=== PATIENT | female | born 1985 | race Caucasian/White ===

== ENCOUNTER 2016-11-12 06:29 | Inpatient (IN) | payer MEDICAID ==
[~2016-11-12] VITALS: Ht 133.3 cm; Wt 56.0 kg
[~2016-11-12 06:29] MED LIST: CA C1TAB60 PO; IBUP800T25 PO; ISON100T25 PO; PERCOCET PO; PREN1TAB31 PO; [UNRECOGNIZED DRUG - CODE] PO
[2016-11-12 06:51] VITALS: Ht 133.3 cm; Wt 56.0 kg
[2016-11-12] MEDS ORDERED: FERR325C PO (06:51)
[2016-11-12 06:52] VITALS: BP 107/73; PULSE 85; RESP 18
[2016-11-12] MEDS ORDERED: LACTATED RINGER'S 1,000 ML IV SCH (07:20)
[2016-11-12] MEDS ORDERED: OXYTOCIN 30 UNITS/LR 500 ML IV SCH (07:30)
[2016-11-12] MEDS ORDERED: METHYLERGONOVINE 0.2 MG INJ IM PRN ×2 (07:30→17:00)
[2016-11-12] MEDS ORDERED: CEFAZOLIN 2 GM/50 ML (PMX) 50 ML IV SCH (07:30)
[2016-11-12] MEDS ORDERED: LACTATED RINGER'S 1,000 ML IV ONE (07:30)
[2016-11-12] MEDS ORDERED: OXYTOCIN 30 UNITS/LR 500 ML IV PRN ×2 (07:30→17:00)
[2016-11-12] MEDS ORDERED: MISOPROSTOL 200 MCG TAB PR PRN ×2 (07:30→17:00)
[2016-11-12] MEDS ORDERED: CARBOPROST 250 MCG INJ IM PRN ×2 (07:30→17:00)
[2016-11-12 08:16] LABS: ADD SCAN DIFF NO
[2016-11-12 08:27] LABS: ABNORMAL IP MESSAGE 1; BASOPHILS % 0.5 % (0.0-2.0); EOSINOPHILS # 0.3 10^3/ul (0.0-0.5); EOSINOPHILS % 4.4 % (0.0-7.0); HEMATOCRIT 32.2 % (37.0-47.0); HEMOGLOBIN 9.9 g/dl (12.0-16.0); LYMPHOCYTES # 2.2 10^3/ul (0.8-2.9); LYMPHOCYTES % 34.6 % (15.0-51.0); MEAN CORPUSCULAR HEMOGLOBIN 24.3 pg (29.0-33.0); MEAN CORPUSCULAR HGB CONC 30.7 g/dl (32.0-37.0); MEAN CORPUSCULAR VOLUME 78.9 fl (82.0-101.0); MONOCYTE # 0.5 10^3/ul (0.3-0.9); MONOCYTES % 7.7 % (0.0-11.0); NEUTROPHIL # 3.4 10^3/ul (1.6-7.5); NEUTROPHILS % 52.3 % (39.0-77.0); PLATELET COUNT 120 10^3/UL (140-415); RED BLOOD COUNT 4.08 10^6/ul (4.20-5.40); RED CELL DISTRIBUTION WIDTH 15.4 % (11.5-14.5); WHITE BLOOD COUNT 6.4 10^3/ul (4.8-10.8)
[2016-11-12] MEDS ORDERED: TERBUTALINE 1 MG/ML INJ SC ONE (08:30)
[2016-11-12 08:53] LABS: INR 0.95; PROTIME 12.7 Sec (12.2-14.2)
[2016-11-12 08:54] LABS: PARTIAL THROMBOPLASTIN TIME 29.4 Sec (25.0-35.0)
--- NOTE | 2016-11-12 09:17 | TRIAGE ---
OB Triage Datetime Report Generated by CPN: 11/12/2016 09:17 Datetime: 11/12/2016 09:01 Labor Evaluation Frequency: 5-15 Monitor Mode: External Duration (sec)2399: 60-80 Quality: Moderate Pattern: Normal: <= 5 Contractions in 10 Minutes Resting Tone Lynden: Relaxed Heart Rate FHR Baseline Rate: 130 Monitor Mode: External US FHR Baseline Changes: No Baseline Change Variability: Moderate 6-25 bpm Accelerations: 15X15 Decelerations: None Category: Category I Pain Assessment Pain Scale: 8 Pain Presence: Intermittent Pain Type: Contraction Pain Location: Abdomen Pain Relief Measures: Comfort Measures Datetime: 11/12/2016 08:00 Maternal Assessment Level of Consciousness: Fully Conscious DTR's/Clonus: DTRs 2+; No Clonus Headache: Denies Blurred Vision: No Respiratory Effort: Unlabored; Regular Rhythm Breath Sounds, Left: Clear and Equal Breath Sounds, Right: Clear and Equal Nausea/Vomiting: Denies RUQ Epigastric Pain: Denies Facial Edema: None Labor Evaluation Frequency: 4-10 Monitor Mode: External Duration (sec)2399: 60-90 Quality: Moderate Pattern: Normal: <= 5 Contractions in 10 Minutes Resting Tone Lynden: Relaxed Heart Rate FHR Baseline Rate: 135 Monitor Mode: External US FHR Baseline Changes: No Baseline Change Variability: Moderate 6-25 bpm Accelerations: 15X15 Decelerations: None Category: Category I Pain Assessment Pain Scale: 8 Pain Presence: Intermittent Pain Type: Contraction Pain Location: Abdomen; Back Pain Relief Measures: Comfort Measures Datetime: 11/12/2016 07:14 Stage of : OB Triage Datetime: 11/12/2016 07:11 Vaginal Exam Dilatation (cms): 0.0 Effacement (%): 0 Station: -4 Exam By: ASHLYN Barillas Vaginal Bleeding: None Cervix, Consistency: Firm Cervix, Position: Posterior Datetime: 11/12/2016 07:09 Membrane Status: Ruptured Membranes Rupture Method: Spontaneous Amniotic Fluid Amount: Small Amniotic Fluid Odor: Normal Pool: Positive Nitrazine: Positive Datetime: 11/12/2016 06:46 Stage of : OB Triage Assessment Type: Triage Maternal Assessment Level of Consciousness: Fully Conscious DTR's/Clonus: DTRs 2+; No Clonus Headache: Denies Blurred Vision: No Respiratory Effort: Unlabored; Regular Rhythm; Equal Expansion Breath Sounds, Left: Clear and Equal Breath Sounds, Right: Clear and Equal Nausea/Vomiting: Denies RUQ Epigastric Pain: Denies Lower Extremities Edema: None Degree: None Upper Extremities Edema: None Degree: None Facial Edema: None Temperature Route: Oral Fall Risk Assessment History of Falling: (0) No Secondary Diagnosis: (0) No Ambulatory Aid: (0) Bedrest/Nurse Assist IV Therapy: (0) No Gait: (0) Normal/Bedrest/Immobile Mental Status: (0) Oriented to Own Ability Fall Score: 0 Fall Risk Score Definition: No Risk: No action required Pain Assessment Pain Scale: 8 Pain Presence: Intermittent Pain Type: Cramping Pain Location: Abdomen Pain Relief Measures: Comfort Measures Datetime: 11/12/2016 06:43 EGA: 36.4 Time Provider Notified: 11/12/2016 07:14 Provider Notified: IMELDA Datetime: 11/12/2016 06:35 Time of Arrival: 11/12/2016 06:24 Arrived By: Wheelchair Arrived From: Home Chief Complaint: UCs q5mins, SROM @0430 Movement: Present Contractions: Regular Time Contractions Began: 11/12/2016 05:00 Contractions: q5mins Rupture of Membranes: Ruptured Vaginal Bleeding: None Vaginal Discharge: Present Abdominal Trauma: Not Applicable Patient Complaints: Contractions; Cramping Time Provider Notified: 11/12/2016 07:14 Provider Notified: IMELDA Initial Plan: PEGGY x2, VE
[2016-11-12] MEDS ORDERED: AMPICILLIN 2 GM/NS (PMX) 100 ML IV ONE (10:30)
--- NOTE | 2016-11-12 12:44 | RADRPT ---
PROCEDURE: US OB. CLINICAL INDICATION: Size and dates , labor TECHNIQUE: Multiple sonographic images of the pelvis and gravid uterus were obtained. The images were reviewed on a PACS workstation. COMPARISON: No prior studies are available for comparison. FINDINGS: There is a single viable intrauterine gestation. Cardiac activity is present with 135 beats per min kevin. There is a transverse left presentation. The placenta is anterior. There is no evidence for an abruption or placenta previa. Measurements were made in order to determine age. The results are as follows: BPD =8.7 cm HC =30.9 cm AC =30.7 cm FL =6.7 cm Estimated gestational age of approximately 34 weeks and 4 days based on ultrasound measurements. Clinical age: 35 weeks and 5 days. The estimated date of delivery is 12/20/16, based on ultrasound measurements. The EFW = 2460 g, 20%, based on LMP age. RPTAT: AA IMPRESSION: Single viable intrauterine gestation of approximately 34 weeks and 4 days based on ultrasound measu rements. Smaller than clinical age by 1 week. .Tim Espinoza MD, MD Date Time Electronically viewed and signed by .Tim Espinoza MD, on 11/12/2016 12:43 .S/
[2016-11-12] MEDS ORDERED: KETOROLAC 30 MG INJ ONE (12:46)
[2016-11-12] MEDS ORDERED: METOCLOPRAMIDE 10 MG INJ ONE (12:46)
[2016-11-12] MEDS ORDERED: morphine SULFATE/PF (10 MG/10 ML) INJ ONE (12:46)
[2016-11-12] MEDS ORDERED: AMPICILLIN 1 GM/NS (PMX) 50 ML IV SCH (14:30)
[2016-11-12] MEDS ORDERED: ONDANSETRON 4 MG INJ IV PRN ×2 (14:30)
[2016-11-12] MEDS ORDERED: HYDROmorphONE (0.2 MG/ML) 10ML SYG IV PRN ×3 (14:30)
[2016-11-12] MEDS ORDERED: DIPHENHYDRAMINE 50 MG INJ IV PRN (14:30)
[2016-11-12] MEDS ORDERED: NALOXONE (0.4 MG/ML) INJ IV PRN (14:30)
[2016-11-12] MEDS ORDERED: HYDROmorphONE 1 MG/ML SYG IV PRN ×3 (14:30)
[2016-11-12] MEDS ORDERED: METOCLOPRAMIDE 10 MG INJ IV PRN (14:30)
--- NOTE | 2016-11-12 15:15 | HP ---
Date/Time of Note Date/Time of Note DATE: 11/12/16 TIME: 14:28 OB - History Hx of Present Free Text/Dictation 30 y/o female at 35.5 weeks here for C/P SROm at 04:30 AM Chief Complaint: SROM and uterine contractions Last Menstrual Period: Apr 04, 2016 Estimated Due Date: December 12, 2016 : 3 Para: 2 Spontaneous : 0 Therapeutic : 0 Care: Good Care Ultrasounds: Normal mid trimester US Obstetrical Complications: None Medical Complications: None Past Family/Social History * Past Medical, Surgical, Family and Obstetric Histories reviewed from chart. Blood Type: O+ Rubella: immune RPR/VDRL: Negative GBS Status: Unknown HBsAG: Negative OB Admission Exam Vital Signs Vital Signs Vital Signs Date Time Temp Pulse Resp B/P Pulse Ox O2 Delivery O2 Flow Rate FiO2 11/12/16 06:52 97.7 85 18 107/73 Room Air Physical Exam HEENT: WNL Heart: Rhythm Normal Lungs: Clear, Equal Abdomen: WNL Extremities: Normal Reflexes: Normal Cervical Dilatation: 1cm Effacement: 0% Station: -3 Membranes: Ruptured Amniotic Fluid: Clear Heart Rate: 140's Accelerations: Accelerations Present Decelerations: No Decelerations Varibility: Marked Contractions on Admission: 6-10 Minutes Apart Date/Time Contractions Began: 11/12/2016 04:30AM Frequency of Contractions: q5 min Duration: > 45 seconds Intensity: Moderate Last 72 hours Lab Results CBC & BMP 11/12/16 07:45 OB Assessment/Plan Other Assessment: PSROM previous C/S X 2 Desires sterilization Other plan: repeat C/S + BTL GONZALO MONTELONGO MD Nov 12, 2016 15:07
--- NOTE | 2016-11-12 15:20 | OPR ---
Operative Report Planned Procedure Procedure date Nov 12, 2016 Procedure(s) repeat C/S + BTL Performed by: GONZALO MONTELONGO MD Assisting provider: SOPHIE GARRISON MD Anesthesiologist: PHAN PRICE MD Pre-procedure diagnosis 35'5 weeks gestation previous C/S X 2 labor and PSROM Desires sterilization Anesthesia Type: spinal Procedure Description Under satisfactory anaesthesia a Pfannenstiel incision was made two fingerbreadth above and parallel to the symphysis of pubis around the previous scar and previous scar was removed Incision was extended laterally to the border of the Recti muscles on either sides. Incision was carried down with sharp and blunt dissection until fascia was reached. Anterior Recti muscle fascia was incised in mid portion and incision extended laterally to the border of skin incision. Fascia was mobilized from muscle superiorly and Recti muscles were from midline using sharp and blunt dissection. Peritoneum was visualized; Avoiding bowel and bladder it was incised . Incision was extended superiorly and inferiorly. Bladder blade was placed. Posterior peritoneum covering the lower segment of the uterus and lower segment of the uterus were incised.Low transverse uterine incision was made on lower segment of the uterus. Incision extended laterally to the border of Round Lig. on either sides and baby was delivered from OT. position . Amniotic fluid appeared clear. Cord blood was obtained and cord had 3 vessels . Placenta was delivered spontaneously and appeared intact and complete. Intrauterine cavity was rubbed with a laparotomy sponge. Uterine incision was closed in 2 layers using running stitches of No1 Monocryl. Hemostasis appeared secure. Ovaries and Fallopian tubes were within normal limits. Bilateral Tubal Ligation was performed by following procedure: R fallopian tube was raised in mid portion; a Olivia clamp was placed below the fimbriae extending to proximal portion of the fallopian tube. Another clamp was placed parallel to the first and after incising the fallopian tube the stump was sutured using 0 Vicryl stitch. Hemostasis was secure . Same procedure was done on fallopian tube on the opposite side. Hemostasis appeared to be secure on ligated sites of either fallopian tubes. Announcing needle, lap sponge and instrument count to be correct abdomen was closed in layers as follows: Peritoneum and Recti muscles with running stitches of 20 Vicryl. Fascia with running stitch of No 1 PDS. Subcutaneous tissue with running stitches of 20 Chromic and skin was closed using mirna. Patient tolerated the procedure well and was transferred to [facility] in good condition. Post-Procedure Post-procedure diagnosis S/P C/S + BTL Findings: Live Baby Specimen removed: Yes Specimen description distal segments of R and L fallopian tubes Complications: None Pt Condition post procedure: stable Disposition: PACU Physician Certification I, the undersigned physician, hereby certify that I have discussed the procedure described in this consent form with this patient (or the patient's legal banking representative), including: * The risk and benefits of the procedure; * Any adverse reactions that may reasonably be expected to occur; * Any alternative efficacious methods of treatment which may be medically viable ; * The potential problems that may occur during recuperation; * Potential for blood transfusion and associated risks/benefits; and * Any research or economic interest I may have regarding this treatment. I further certify that the patient/legally responsible person was encouraged to ask question and that all questions were answered. GONZALO MONTELONGO MD Nov 12, 2016 15:20
[2016-11-12] MEDS: LACTATED RINGER'S 1,000 ML IV SCH ×2 (16:31→21:02)
[2016-11-12 17:00] VITALS: BP 102/68; PULSE 81; RESP 18
[2016-11-12] MEDS ORDERED: NA PHOSPHATE/BIPHOS 133 ML ENEMA PR PRN (17:00)
[2016-11-12] MEDS ORDERED: LANOLIN 7 GM TUBE TOP PRN (17:00)
[2016-11-12] MEDS ORDERED: ACETAMINOPHEN/CODEINE #3 TAB PO PRN (17:00)
[2016-11-12 17:30] VITALS: BP 108/63; PULSE 73; RESP 19
[2016-11-12] MEDS: CLINDAMYCIN 300 MG CAP PO SCH (18:00)
[2016-11-12] MEDS: CEFAZOLIN 2 GM/50 ML (PMX) 50 ML IV SCH (18:15)
[2016-11-12 20:00] VITALS: BP 98/64; PULSE 72; RESP 20
[2016-11-12] MEDS: SENNA/DOCUSATE NA (8.6MG/50MG) TAB PO SCH (21:00)
[2016-11-12] MEDS: KETOROLAC 30 MG INJ IV PRN (23:51)
[2016-11-13] MEDS: CEFAZOLIN 2 GM/50 ML (PMX) 50 ML IV SCH ×2 (00:49→09:20)
[2016-11-13 04:23] VITALS: BP 110/62; PULSE 72; RESP 20
[2016-11-13] MEDS: LACTATED RINGER'S 1,000 ML IV SCH ×2 (05:37→16:31)
[2016-11-13] MEDS: CLINDAMYCIN 300 MG CAP PO SCH ×4 (06:00→17:56)
--- NOTE | 2016-11-13 07:16 | PN ---
Date/Time of Note Date/Time of Note DATE: 11/13/16 TIME: 07:14 Assessment/Plan VTE Prophylaxis VTE Prophylaxis Intervention: ambulation Lines/Catheters IV Catheter Type (from Nrsg): Peripheral IV Subjective 24 Hr Interval Summary Free Text/Dictation Anesthesia Note: A 29 titi fermale s/p C-S with Duramorph for post op pain POD # 1 is doping well. pain is controlled, no itching, headache, back pain, N/V. back is clean. care per surgery team Exam/Review of Systems Vital Signs Vitals Vital Signs Date Time Temp Pulse Resp B/P Pulse Ox O2 Delivery O2 Flow Rate FiO2 11/13/16 04:23 98.1 72 20 110/62 Room Air Intake and Output 11/12/16 11/12/16 11/13/16 15:00 23:00 07:00 Intake Total 600 ml 625 ml 1000 ml Output Total 1400 ml 350 ml Balance 600 ml -775 ml 650 ml Results Result Diagram: 11/12/16 0745 Results 24 hrs Laboratory Tests Test 11/12/16 07:45 White Blood Count 6.4 Red Blood Count 4.08 L Hemoglobin 9.9 L Hematocrit 32.2 L Mean Corpuscular Volume 78.9 L Mean Corpuscular Hemoglobin 24.3 L Mean Corpuscular Hemoglobin Concent 30.7 L Red Cell Distribution Width 15.4 H Platelet Count 120 L Mean Platelet Volume Neutrophils % 52.3 Lymphocytes % 34.6 Monocytes % 7.7 Eosinophils % 4.4 Basophils % 0.5 Nucleated Red Blood Cells % 0.0 Neutrophils # 3.4 Lymphocytes # 2.2 Monocytes # 0.5 Eosinophils # 0.3 Basophils # 0.0 Nucleated Red Blood Cells # 0.0 Prothrombin Time 12.7 Prothrombin Time Ratio 1.0 INR International Normalized Ratio 0.95 Activated Partial Thromboplast Time 29.4 Rapid Plasma Reagin NONREACTIVE Hepatitis B Surface Antigen NEGATIVE HIV (1&2) Antibody NEGATIVE Medications Medications Current Medications Naloxone HCl (Narcan) 0.1 mg Q2M PRN IV FOR RESP RATE 8 OR LESS; Start 11/12/16 at 14:30; Stop 11/13/16 at 14:29 Ketorolac Tromethamine (Toradol) 30 mg Q6H PRN IV PAIN Last administered on 11/12t 23:51; Admin Dose 30 MG; Start 11/12/16 at 14:30; Stop 11/13/16 at 14:29 Hydromorphone HCl (Dilaudid) 1 mg Q3H PRN IV BREAKTHROUGH PAIN; Start 11/12/16 at 14:30; Stop 11/13/16 at 14:29 Hydromorphone HCl (Dilaudid) 0.2 mg Q3H PRN IV PAIN LEVEL 1-5; Start 11/12/16 at 14:30; Stop 11/13/16 at 14:29 Hydromorphone HCl (Dilaudid) 0.4 mg Q3H PRN IV PAIN LEVEL 6-10; Start 11/12/16 at 14:30; Stop 11/13/16 at 14:29 Diphenhydramine HCl (Benadryl) 25 mg Q6H PRN IV ITCHING; Start 11/12/16 at 14:30 ; Stop 11/13/16 at 14:29 Ondansetron HCl 4 mg 4 mg Q6H PRN IV NAUSEA AND/OR VOMITING Last administered on 11/12/16 21:23; Admin Dose 4 MG; Start 11/12/16 at 14:30; Stop 11/13/16 at 14: 29 Lactated Ringer's 1,000 ml @ 125 mls/hr Q8H IV Last administered on 11/13/16 05:37; Admin Dose 125 MLS/HR; Start 11/12/16 at 16:31 Cefazolin Sodium/ Dextrose (Ancef 2 Gm/50 ml (Pmx)) 50 ml @ 100 mls/hr Q8H IV Last administered on 11/13/16 00:49; Admin Dose 100 MLS/HR; Start 11/12/16 at 17: 00; Stop 11/13/16 at 09:29 Ibuprofen (Motrin) 800 mg Q8 PO ; Start 11/13/16 at 14:00 Simethicone (Mylicon) 160 mg Q8H PRN PO DISTENSION/GAS/BLOATING; Start 11/12/16 at 17:00 Senna/Docusate Sodium (Senokot-S) 1 tab BID PO ; Start 11/12/16 at 21:00 Sodium Biphosphate/ Sodium Phosphate (Fleet Enema) 133 ml DAILY PRN TN CONSTIPATION; Start 11/12/16 at 17:00 Diphtheria/ Tetanus/Acell Pertussis (Adacel) 0.5 ml ONCE ONCE IM* ; Start at 09:00; Stop 11/15/16 at 09:01 Measles/Mumps/ Rubella Vaccine Live 0.5 ml 0.5 ml ONCE ONCE SC* ; Start at 09:00; Stop 11/15/16 at 09:01 Oxytocin/Lactated Ringer's 500 ml @ 0 mls/hr ONCE PRN IV For Hemorrhage Management Last administered on 11/12/16t 17:14; Admin Dose 125 MLS/HR; Start 11/12/16 at 17:00 Methylergonovine Maleate (Methergine) 0.2 mg ONCE PRN IM VAGINAL BLEEDING; Start 11/12/16 at 17:00 Carboprost Tromethamine (Hemabate) 250 mcg ONCE PRN IM VAGINAL BLEEDING; Start 11/12/16 at 17:00 Misoprostol (Cytotec) 1,000 mcg ONCE PRN TN VAGINAL BLEEDING; Start 11/12/16 at 17:00 Acetaminophen/ Codeine Phosphate (Tylenol No.3) 2 tab Q4H PRN PO PAIN LEVEL 1-5 ; Start 11/12/16 at 17:00 Oxycodone/ Acetaminophen (Percocet (5/ 325)) 2 tab Q4H PRN PO PAIN LEVEL 6-10; Start 11/12/16 at 17:00 Clindamycin HCl (Cleocin) 300 mg Q6 PO ; Start 11/12/16 at 18:00 Bisacodyl (Dulcolax Supp) 10 mg ONCE ONCE TN ; Start 11/13/16 at 09:00; Stop 11/13/16 at 09:01 PHAN PRICE MD Nov 13, 2016 07:16
[2016-11-13 07:36] LABS: ADD SCAN DIFF NO
[2016-11-13 07:38] LABS: ABNORMAL IP MESSAGE 1; BASOPHILS % 0.3 % (0.0-2.0); EOSINOPHILS # 0.3 10^3/ul (0.0-0.5); EOSINOPHILS % 4.1 % (0.0-7.0); HEMATOCRIT 24.6 % (37.0-47.0); HEMOGLOBIN 7.7 g/dl (12.0-16.0); LYMPHOCYTES # 1.9 10^3/ul (0.8-2.9); LYMPHOCYTES % 26.6 % (15.0-51.0); MEAN CORPUSCULAR HGB CONC 31.3 g/dl (32.0-37.0); MEAN CORPUSCULAR VOLUME 79.9 fl (82.0-101.0); MONOCYTE # 0.5 10^3/ul (0.3-0.9); MONOCYTES % 7.2 % (0.0-11.0); NEUTROPHIL # 4.4 10^3/ul (1.6-7.5); NEUTROPHILS % 61.5 % (39.0-77.0); PLATELET COUNT 103 10^3/UL (140-415); RED BLOOD COUNT 3.08 10^6/ul (4.20-5.40); RED CELL DISTRIBUTION WIDTH 15.4 % (11.5-14.5); WHITE BLOOD COUNT 7.1 10^3/ul (4.8-10.8)
[2016-11-13 08:00] VITALS: BP 98/59; PULSE 108; RESP 19
[2016-11-13] MEDS ORDERED: BISACODYL 10 MG SUPP PR ONE (09:00)
[2016-11-13] MEDS: SENNA/DOCUSATE NA (8.6MG/50MG) TAB PO SCH ×2 (09:20→21:25)
[2016-11-13] MEDS: KETOROLAC 30 MG INJ IV PRN (11:45)
[2016-11-13 12:00] VITALS: BP 98/66; PULSE 94; RESP 18
[2016-11-13 13:50] LABS: RUBELLA ANTIBODY - IGG 1.45 index
[2016-11-13] MEDS: IBUPROFEN 800 MG TAB PO SCH ×2 (14:00→21:25)
[2016-11-13 16:00] VITALS: BP 110/76; RESP 18
--- NOTE | 2016-11-13 16:25 | PN ---
Date/Time of Note Date/Time of Note DATE: 11/13/16 TIME: 16:22 Assessment/Plan VTE Prophylaxis VTE Prophylaxis Intervention: ambulation Lines/Catheters IV Catheter Type (from Nrsg): Peripheral IV Assessment/Plan Assessment/Plan POD # 1 S/P C/S will advance diet and ambulate Subjective 24 Hr Interval Summary no BM Passing flatus Constitutional: BM, ambulates, flatus, improved, no complaints, urine output Pain Control: well controlled Exam/Review of Systems Vital Signs Vitals Vital Signs Date Time Temp Pulse Resp B/P Pulse Ox O2 Delivery O2 Flow Rate FiO2 11/13/16 12:00 97.8 94 18 98/66 Room Air Intake and Output 11/12/16 11/12/16 11/13/16 15:00 23:00 07:00 Intake Total 600 ml 625 ml 1000 ml Output Total 1400 ml 350 ml Balance 600 ml -775 ml 650 ml Exam Free Text/Dictation Abdomen: soft BS+ incision : covered Constitutional: alert, oriented, well developed Psych: nl mood/affect, no complaints Head: atraumatic, normocephalic Eyes: EOMI, nl conjunctiva, nl lids, nl sclera ENMT: mucosa pink and moist, nl external ears & nose, nl lips & teeth, nl nasal mucosa & septum Neck: non-tender, supple Respiratory: clear to auscultation, normal air movement Cardiovascular: nl pulses, regular rate and rhythm Gastrointestinal: nl liver, spleen, non-tender, soft Musculoskeletal: nl extremities to inspection, nl gait and stance Extremities: normal pulses Neurological: MERCHANDISING STOCK ASSOCIATE II-XII intact, nl mental status, nl speech, nl strength Skin: nl turgor, rash or lesions Lymph: nl lymph nodes Results Result Diagram: 11/13/16 0648 GONZALO MONTELONGO MD Nov 13, 2016 16:25
[2016-11-13 19:35] VITALS: BP 102/62; PULSE 100; RESP 18
[2016-11-13] MEDS: OXYCODONE/ACETAMINOPHEN (5/325) TAB PO PRN (20:03)
[2016-11-14] MEDS: CLINDAMYCIN 300 MG CAP PO SCH ×4 (00:06→17:28)
[2016-11-14] MEDS: LACTATED RINGER'S 1,000 ML IV SCH ×2 (00:31→08:31)
[2016-11-14 04:25] VITALS: BP 108/72; PULSE 90; RESP 16
[2016-11-14] MEDS: IBUPROFEN 800 MG TAB PO SCH ×3 (05:57→21:04)
[2016-11-14 08:00] VITALS: BP 106/66; PULSE 85; RESP 18
[2016-11-14] MEDS: SENNA/DOCUSATE NA (8.6MG/50MG) TAB PO SCH ×2 (09:15→21:04)
[2016-11-14 16:07] VITALS: BP 107/59; PULSE 78; RESP 18
--- NOTE | 2016-11-14 16:49 | DS ---
Date/Time of Note Date/Time of Note home next day DATE: 11/14/16 TIME: 16:48 Obstetrical Discharge Record Final Diagnosis Final Diagnosis: delivered Other Final Diagnosis S/P repeat C/S at 35 weeks Section Section: Repeat Condition on Discharge Physical Assessment Last Vitals: see nurses notes Voiding: Yes Bowel Movement: Yes Breast: Soft, non-tender, Filling Fundus: Firm Abdomen and Incision: soft BS + Incision: healing well Episiotomy: NA Calf Tenderness: No Patient Condition: Good GONZALO MONTELONGO MD Nov 14, 2016 16:49
--- NOTE | 2016-11-14 16:52 | DS ---
Date/Time of Note Date/Time of Note DATE: 11/14/16 TIME: 16:50 Discharge Summary Admission/Discharge Info Admit Date/Time Nov 12, 2016 at 07:27 Discharge Date/Time 11/15/2016 Final Diagnosis 35 weeks gestation previous C/S X 2 SROM labor desired sterilization Patient Condition: Good Procedures repeat C/C and BTL Hx of Present Illness 30 y/o female had repeat C/S + BTL Hospital Course uncomplicated Home Meds Active Scripts Ibuprofen* (Ibuprofen*) 800 Mg Tab, 800 MG PO Q8, #20 0 Refills Prov:GONZALO MONTELONGO MD 06/04/15 Oxycodone Hcl/Acetaminophen (Percocet) 1 Tab Tab, 2 TAB PO Q4H Y for PAIN LEVEL 6-10, #30 TAB 0 Refills Prov:GONZALO MONTELONGO MD 06/04/15 Reported Medications Ferrous Sulfate (Iron) 325 Mg Capsule.er, 325 MG PO DAILY, CAP 11/12/16 Isoniazid* (Isoniazid*) 100 Mg Tablet, 100 MG PO DAILY 05/07/13 Calcium Carb & Cit-Vitamin D3 (Calcium + Vitamin D3 Caplet) 1 Each Tablet.er, 1 EACH PO 05/07/13 Ca Carbonate-Vitamin D3-Vit K (Calcium + D Soft Chewable Tab) 1 Each Tab.chew, 1 EACH PO 05/07/13 Vits #90-Iron Fum-FA ( Formula) 1 Each Tablet, 1 EACH PO DAILY 05/07/13 Follow-up Plan 2-3 days in clinic for staple removal GONZALO MONTELONGO MD Nov 14, 2016 16:52
--- NOTE | 2016-11-14 16:54 | PD.PPDC ---
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
[2016-11-14] MEDS ORDERED: IBUP800T25 PO (16:55)
[2016-11-14] MEDS ORDERED: Oxycodone/Acetamin (5/325) PO (16:55)
[2016-11-14 20:00] VITALS: BP 97/52; PULSE 86; RESP 20
[2016-11-15] MEDS: CLINDAMYCIN 300 MG CAP PO SCH ×4 (00:47→18:31)
[2016-11-15] MEDS: OXYCODONE/ACETAMINOPHEN (5/325) TAB PO PRN ×2 (03:03→18:38)
[2016-11-15 04:00] VITALS: BP 104/73; PULSE 81; RESP 19
[2016-11-15] MEDS: IBUPROFEN 800 MG TAB PO SCH ×2 (05:17→13:52)
[2016-11-15 08:20] VITALS: BP 107/69; PULSE 80; RESP 19
[2016-11-15] MEDS ORDERED: DIPHTH/TET/ACEL PERTUSS (ADULT) 0.5 ML VIAL IM* ONE (09:00)
[2016-11-15] MEDS ORDERED: MEASLES,MUMPS,RUBELLA VACCINE INJ SC* ONE (09:00)
[2016-11-15] MEDS: SENNA/DOCUSATE NA (8.6MG/50MG) TAB PO SCH (10:11)
[2016-11-15 15:45] VITALS: BP 127/83; PULSE 85; RESP 18
== END 2016-11-15 19:10 | disposition home or self-care (01) | DRG 766 ==
LOC: OBT 06:29 → L-D 06:30 → OBT 07:26 → L-D 07:27 → PP1 16:51
PROVIDERS: ADMIT Obstetrics & Gynecology; ATTEND Obstetrics & Gynecology
PROC: 10D00Z1 Extraction of Products of Conception, Low, Open Approach (ICD-10-PCS; principal; 2016-11-12)
PROC: 0UL70ZZ Occlusion of Bilateral Fallopian Tubes, Open Approach (ICD-10-PCS; 2016-11-12)
DX: O60.14X0 Preterm labor third trimester with preterm delivery third trimester, not applicable or unspecified (principal); O34.211 Maternal care for low transverse scar from previous cesarean delivery; Z30.2 Encounter for sterilization; Z3A.35 35 weeks gestation of pregnancy; Z37.0 Single live birth
CPT/HCPCS: 36415; 76815; 84112; 85025; 85610; 85730; 86592; 86703; 86762; 86850; 86900; 86901; 87340; 88302; 90715; 96372; 99464; G0463; J0290; J0690; J1885; J2274; J2405; J2590; J2765; J3105; J7120